=== PATIENT | male | born 1950 | race Caucasian/White ===

== ENCOUNTER 2020-09-07 08:59 | Day surgery (SDC) | payer OTHER ==
[~2020-09-07] VITALS: Ht 185.4 cm; Wt 97.5 kg
[2020-09-07 09:24] VITALS: BP 143/74
[2020-09-07 14:43] VITALS: BP 154/88
== END 2020-09-07 15:10 | disposition home or self-care (01) ==
LOC: GI 08:59 → OR 11:30 → GI 15:10
PROVIDERS: ATTEND Surgery
DX: Z12.11 Encounter for screening for malignant neoplasm of colon (principal); D12.8 Benign neoplasm of rectum; K63.89 Other specified diseases of intestine; R60.9 Edema, unspecified; F17.210 Nicotine dependence, cigarettes, uncomplicated; Z79.899 Other long term (current) drug therapy; Z79.84 Long term (current) use of oral hypoglycemic drugs; Z98.890 Other specified postprocedural states; Z95.818 Presence of other cardiac implants and grafts; Z80.3 Family history of malignant neoplasm of breast
CPT/HCPCS: 45378; J1200; J1610; J2250; J2310; J3010; J3490